=== PATIENT | female | born 1990 | race Caucasian/White ===

== ENCOUNTER 2020-04-15 11:12 | Emergency (ER) | payer MEDICAID ==
[~2020-04-15] VITALS: Ht 152.4 cm; Wt 70.0 kg
[2020-04-15 12:10] VITALS: BP 121/83
== END 2020-04-15 12:13 ==
LOC: ER 11:13
DX: S00.83XA Contusion of other part of head, initial encounter (principal); X58.XXXA Exposure to other specified factors, initial encounter; Y93.89 Activity, other specified; Y92.89 Other specified places as the place of occurrence of the external cause; Y99.8 Other external cause status
CPT/HCPCS: 99283